=== PATIENT | male | born 2005 | race Asian ===

== ENCOUNTER 2024-12-14 14:28 | Emergency (ER) | payer OTHER, SELFPAY ==
[2024-12-14 14:33] VITALS: BP 124/76; PULSE 80; RESP 16; TEMP 36.7; O2SAT 97; BMI 30.4
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
--- NOTE | 2024-12-14 15:06 | CRLHL7_ITS ---
For Patients: As a result of the Century Cures Act, medical imaging exams and procedure reports are released immediately into your electronic medical record. You may view this report before your referring provider. If you have questions, please contact your health care provider. Indication: Knee injury with pain and swelling Technique: MRI of the left knee performed without intravenous contrast at 1.5 Karma Comparison: None Findings: Fluid: Small to medium joint effusion. Menisci: Intact medial and lateral menisci. Ligaments: Increased signal and subtle fiber discontinuity in the posterior cruciate ligament compatible with a moderate grade sprain. Intact ACL. Intact MCL. Intact LCL complex. Extensor mechanism: Minimal distal quadriceps tendinopathy and minimal patellar tendinopathy. Normal signal within Hoffa`s fat. Normal patellar alignment. Bone and cartilage: Grossly intact tricompartmental cartilage. No acute fracture. No aggressive appearing marrow replacing lesion. Miscellaneous: Mild anterior knee subcutaneous edema. No Sniha`s cyst. Impression: 1. Moderate grade sprain of the posterior cruciate ligament. 2. Small to medium joint effusion. 3. Mild anterior knee subcutaneous edema. Dictated by Lucio Marmolejo MD @ 12/14/2024 5:03:41 PM (Electronically Signed)
[2024-12-14 16:53] VITALS: BP 105/93; PULSE 73; RESP 18; TEMP 36.6; O2SAT 94
== END 2024-12-14 17:43 | disposition home or self-care (01) ==
PROVIDERS: Emergency Provider Family Medicine
DX: S76.112A Strain of left quadriceps muscle, fascia and tendon, initial encounter (principal); V48.0XXA Car driver injured in noncollision transport accident in nontraffic accident, initial encounter
CPT/HCPCS: 73721; 99283; 99284